=== PATIENT | male | born 1990 | race Two or more races ===

== ENCOUNTER 2022-05-17 13:51 | Emergency (ER) | payer BC ==
[~2022-05-17] VITALS: Ht 175.3 cm; Wt 77.1 kg
== END 2022-05-17 21:47 | disposition home or self-care (01) ==
LOC: ER 13:51
DX: S43.004A Unspecified dislocation of right shoulder joint, initial encounter (principal); V00.148A Other scooter (nonmotorized) accident, initial encounter; Y93.I9 Activity, other involving external motion; Y92.9 Unspecified place or not applicable